=== PATIENT | male | born 1990 | race Two or more races ===

== ENCOUNTER 2021-02-03 09:54 | Emergency (ER) | payer OTHER ==
[~2021-02-03] VITALS: Ht 180.3 cm; Wt 108.9 kg
[2021-02-03 09:58] VITALS: BP 120/77
--- NOTE | 2021-02-03 10:04 | NUR ---
AT BEDSIDE FOR EVAL.
--- NOTE | 2021-02-03 10:09 | NUR ---
Patient discharged in custody stable condition. Written and verbal after care instructions given. Patient verbalizes understanding of instruction.
== END 2021-02-03 10:10 ==
LOC: ER 09:57
DX: Z02.89 Encounter for other administrative examinations (principal)